=== PATIENT | female | born 1970 | race Two or more races ===

== ENCOUNTER 2022-10-03 10:26 | Emergency (ER) | payer MEDICAID, OTHER ==
[~2022-10-03] VITALS: Ht 165.1 cm; Wt 106.0 kg
[2022-10-03 10:50] LABS: Basophils # (auto) 0 10 ^3/uL (0-0.2); Basophils % (auto) 0.4 % (0.0-2.0); Eosinophils # (auto) 0.1 10 ^3/uL (0-0.8); Hematocrit 41.2 % (36.0-46.0); Lymphocytes # (auto) 3.1 10 ^3/uL (0.4-5.4); Lymphocytes % (auto) 45.7 % (10.0-50.0); Mean Corpuscular Hemoglobin 31.4 pg (28.0-32.0); Mean Corpuscular Volume 92.4 fL (80.0-100.0); Monocytes # (auto) 0.5 10 ^3/uL (0-1.3); Monocytes % (auto) 6.9 % (0.0-12.0); Neutrophils # (auto) 3.1 10 ^3/uL (1.6-8.6); Nucleated Red Blood Cells % 0.2 %; Red Blood Cells 4.46 10^6/uL (4.0-5.20); Red Cell Distribution Width 14.4 % (11.8-14.3); White Blood Cell 6.7 10^3/uL (4.4-10.8)
[2022-10-03] MEDS ORDERED: ASPirin 325 MG TAB PO ONE (11:30)
[2022-10-03] MEDS ORDERED: LORazepam 0.5 MG TAB PO ONE (11:30)
[2022-10-03 12:04] VITALS: BP 146/65
[2022-10-03 12:13] LABS: BUN/Creatinine Ratio 26.7 (10.0-20.0); Bilirubin, Total 0.6 mg/dL (0.2-1.0); Total Protein 7.4 g/dL (6.4-8.2)
[2022-10-03] MEDS ORDERED: ENOXAPARIN SOD 120 MG/0.8 ML SYRINGE SC ONE (12:45)
[2022-10-03 13:16] LABS: Urine Bacteria FEW /hpf (None Seen); Urine Blood Negative /uL (Negative); Urine Specific Gravity 1.024 (1.001-1.035); Urine WBC 2 /hpf (0 - 5)
[2022-10-03] MEDS ORDERED: MET25T PO (14:55)
[2022-10-03] MEDS ORDERED: NICO14DI29 TOP (14:55)
[2022-10-03] MEDS ORDERED: FAMO20TA10 PO (14:55)
== END 2022-10-03 15:23 | disposition left against medical advice (07) ==
LOC: ER 10:26
DX: I10 Essential (primary) hypertension (principal); I24.8 Other forms of acute ischemic heart disease; R07.89 Other chest pain
CPT/HCPCS: 36415; 71045; 80053; 81001; 83880; 84443; 84484; 85025; 85379; 93005; 96372; 99285; J1650